=== PATIENT | female | born 1980 | race African-American/Black ===

== ENCOUNTER 2016-12-13 09:29 | Observation (INO) | payer SELFPAY ==
[~2016-12-13] VITALS: Ht 157.5 cm; Wt 80.0 kg
[~2016-12-13 09:29] MED LIST: AMLO10 PO; LISI-360 PO
[2016-12-13 09:33] VITALS: BP 148/97; PULSE 80; RESP 17; TEMP 98.5; O2SAT 100
[2016-12-13] MEDS ORDERED: CLON0.2T PO ×2 (09:41→14:08)
[2016-12-13] MEDS ORDERED: AMLO10 PO ×2 (09:41→14:08)
--- NOTE | 2016-12-13 10:06 | PD ---
HPI Chief Complaint: Syncope/Near-Syncope Time Seen by Provider: 09:43 Travel History International Travel<30 days: No Contact w/Intl Traveler<30days: No Traveled to known affect area: No History of Present Illness HPI Patient is a 36 year old female who comes in after nearly passed out today at work. She says she has been out of her blood pressure medications for the past 4 days. She says she started feeling very dizzy yesterday and had a severe headache. She says she took one of her friends Clonidines this morning because this is normally how she feels when her blood pressure is high. She says when she got to work, she felt very dizzy and had to sit down. She says she felt as if she were about to pass out, but never did. She says that her headache has improved. She does report some blurred vision. Since arriving at the hospital , she has developed some left sided chest pain and she feels like it is hard to catch her breath. PFSH Past Medical History Heart Rhythm Problems: No Cancer: No Cardiovascular Problems: Yes (HTN) High Cholesterol: No Chest Pain: Yes Congestive Heart Failure: No Cerebrovascular Accident: Yes (TIA) Diminished Hearing: No Endocrine: No Genitourinary: No Hypertension: Yes Immune Disorder: No Implanted Vascular Access Dvce: No Musculoskeletal: No Neurologic: No Psychiatric: No Reproductive: No Respiratory: No Tetanus Vaccination: Unknown Influenza Vaccination: Yes ?: Not LMP: 11/20/16 Past Surgical History Surgical History: No Previous Surgery Social History Alcohol Use: Yes (WEEKENDS ONLY) Tobacco Use: Yes (10/20 PPD) Substance Use: No Allergies-Medications (Allergen,Severity, Reaction): Coded Allergies: No Known Allergies (Verified , 12/13/16) Reported Meds & Prescriptions Reported Meds & Active Scripts Active Reported Clonidine (Clonidine HCl) 0.2 Mg Tab 0.2 Mg PO BID Norvasc (Amlodipine Besylate) 10 Mg Tab 10 Mg PO DAILY Review of Systems Except as stated in HPI: all other systems reviewed are Neg General / Constitutional: No: Fever, Chills Eyes: Positive: Blurred Vision HENT: Positive: Headaches Cardiovascular: Positive: Chest Pain or Discomfort Respiratory: Positive: Shortness of Breath, No: Cough Gastrointestinal: No: Nausea, Vomiting, Abdominal Pain Musculoskeletal: No: Myalgias, Edema Skin: No Rash, No Change in Pigmentation Neurologic: Positive: Dizziness Physical Exam Narrative GENERAL: Awake and alert, in no acute distress. SKIN: Warm and dry. HEAD: Atraumatic. Normocephalic. EYES: Pupils equal and round. No scleral icterus. Extraocular movements intact. ENT: Mucous membranes pink and moist. NECK: Trachea midline. No JVD. CARDIOVASCULAR: Regular rate and rhythm. No murmur appreciated. RESPIRATORY: No accessory muscle use. Clear to auscultation. Breath sounds equal bilaterally. GASTROINTESTINAL: Abdomen soft, non-tender, nondistended. MUSCULOSKELETAL: No obvious deformities. No clubbing. No cyanosis. No edema. NEUROLOGICAL: Awake and alert. No obvious cranial nerve deficits. Motor grossly within normal limits. Normal speech. Normal cerebellar function testing. PSYCHIATRIC: Appropriate mood and affect; insight and judgment normal. Data Data Last Documented VS Vital Signs Date Time Temp Pulse Resp B/P Pulse Ox O2 Delivery O2 Flow Rate FiO2 12/13/16 12:04 71 16 143/98 99 Room Air 12/13/16 09:33 98.5 Orders Electrocardiogram (12/13/16 ) B-Type Natriuretic Peptide (12/13/16 09:57) Complete Blood Count With Diff (12/13/16 09:57) Comprehensive Metabolic Panel (12/13/16 09:57) Prothrombin Time / Inr (Pt) (12/13/16 09:57) Act Partial Throm Time (Ptt) (12/13/16 09:57) Troponin I (12/13/16 09:57) Ecg Monitoring (12/13/16 09:57) Bilateral Bp Monitoring (12/13/16 09:57) Iv Access Insert/Monitor (12/13/16 09:57) Oximetry (12/13/16 09:57) Chest, Pa & Lat (12/13/16 09:57) Ct Brain W/O Iv Contrast(Rout) (12/13/16 ) Ed Urine Pregnancytest Poc (12/13/16 09:57) Urinalysis - C+S If Indicated (12/13/16 09:57) Amlodipine (Norvasc) (12/13/16 10:00) Urine Culture (12/13/16 10:16) Nitrofurantoin Monohyd Macrocr (Macrobid (12/13/16 11:30) Labs Laboratory Tests Test 12/13/16 12/13/16 10:01 10:16 White Blood Count 6.9 TH/MM3 Red Blood Count 3.50 MIL/MM3 Hemoglobin 11.3 GM/DL Hematocrit 33.6 % Mean Corpuscular Volume 95.9 FL Mean Corpuscular Hemoglobin 32.3 PG Mean Corpuscular Hemoglobin 33.7 % Concent Red Cell Distribution Width 15.0 % Platelet Count 211 TH/MM3 Mean Platelet Volume 7.9 FL Neutrophils (%) (Auto) 62.6 % Lymphocytes (%) (Auto) 21.1 % Monocytes (%) (Auto) 11.6 % Eosinophils (%) (Auto) 4.1 % Basophils (%) (Auto) 0.6 % Neutrophils # (Auto) 4.3 TH/MM3 Lymphocytes # (Auto) 1.5 TH/MM3 Monocytes # (Auto) 0.8 TH/MM3 Eosinophils # (Auto) 0.3 TH/MM3 Basophils # (Auto) 0.0 TH/MM3 CBC Comment DIFF FINAL Differential Comment Prothrombin Time 11.3 SEC Prothromb Time International 1.0 RATIO Ratio Activated Partial 26.7 SEC Thromboplast Time Sodium Level 140 MEQ/L Potassium Level 4.3 MEQ/L Chloride Level 110 MEQ/L Carbon Dioxide Level 26.9 MEQ/L Anion Gap 3 MEQ/L Blood Urea Nitrogen 12 MG/DL Creatinine 1.28 MG/DL Estimat Glomerular Filtration 56 ML/MIN Rate Random Glucose 75 MG/DL Calcium Level 7.8 MG/DL Total Bilirubin 0.8 MG/DL Aspartate Amino Transf 28 U/L (AST/SGOT) Alanine Aminotransferase 16 U/L (ALT/SGPT) Alkaline Phosphatase 64 U/L Troponin I LESS THAN 0.02 NG/ML B-Type Natriuretic Peptide 9 PG/ML Total Protein 7.1 GM/DL Albumin 3.3 GM/DL Urine Color YELLOW Urine Turbidity HAZY Urine pH 5.5 Urine Specific [place] 1.023 Urine Protein 30 mg/dL Urine Glucose (UA) NEG mg/dL Urine Ketones NEG mg/dL Urine Occult Blood NEG Urine Nitrite NEG Urine Bilirubin NEG Urine Urobilinogen 2.0 MG/DL Urine Leukocyte Esterase LARGE Urine RBC 5 /hpf Urine WBC 25 /hpf Urine Squamous Epithelial 27 /hpf Cells Urine Transitional Epithelial <1 /hpf Cells Urine Bacteria FEW /hpf Urine Hyaline Casts 5 /lpf Urine Mucus FEW /lpf Microscopic Urinalysis Comment CULTURE INDICATED MDM Medical Decision Making Medical Screen Exam Complete: Yes Emergency Medical Condition: Yes Medical Record Reviewed: Yes Interpretation(s) ECG shows normal sinus rhythm at 75, no ST elevation or depression, normal intervals. Differential Diagnosis Syncope versus ACS versus electrolyte abnormality versus NSTEMI versus STEMI versus hypertensive emergency Narrative Course Patient is a 36-year-old female with history of high blood pressure, who comes in complaining of chest pain and near syncopal episode. Does no acute abnormalities, no neurologic abnormalities. IV established, patient connected to the catheterization laboratory technician. ECG performed shows no signs of ischemia. Labs sent including pressure-point show no acute abnormality. Urinalysis is positive for UTI. Patient given a dose of Macrobid. Will be given prescription for Macrobid to start when she is discharged. CT head performed shows no acute abnormalities. Patient given aspirin and her dose of amlodipine. Due to patient's history and presenting symptoms, I believe patient would benefit a chest pain center. Will be placed in observation for further management. Diagnosis Primary Impression: Chest pain Qualified Code: R07.9 - Chest pain, unspecified type Additional Impression: Near syncope Admitting Information Admitting Physician Requests: Observation Scripts Nitrofurantoin Monohydrate Macrocrystals (Macrobid)100 Mg [id number] Mg PO BID 5 Days Ref 0 Prov:Cheryle Mazariegos MD 12/13/16 Condition: Stable Cheryle Mazariegos MD Dec 13, 2016 10:06
[2016-12-13 10:17] VITALS: O2SAT 100
[2016-12-13 10:19] LABS: AUTOMATED NEUTROPHIL # 4.3 TH/MM3 (1.8-7.7); BASOPHIL % 0.6 % (0.0-2.0); EOSINOPHIL # 0.3 TH/MM3 (0-0.4); EOSINOPHIL % 4.1 % (0.0-4.0); HEMATOCRIT 33.6 % (35.0-46.0); HEMO FLAGS DIFF FINAL; LYMPH % 21.1 % (9.0-44.0); LYMPHOCYTE # 1.5 TH/MM3 (1.0-4.8); MEAN CELL VOLUME 95.9 FL (80.0-100.0); MEAN CORPUSCULAR HEMOGLOBIN 32.3 PG (27.0-34.0); MEAN CORPUSCULAR HGB CONC 33.7 % (32.0-36.0); MONO % 11.6 % (0.0-8.0); NEUT % 62.6 % (16.0-70.0); PLATELET COUNT 211 TH/MM3 (150-450); WHITE BLOOD COUNT 6.9 TH/MM3 (4.0-11.0)
[2016-12-13 10:30] LABS: APTT (PATIENT) 26.7 SEC (24.3-30.1); PROTHROMBIN TIME - PATIENT 11.3 SEC (9.8-11.6)
[2016-12-13 10:44] LABS: BACTERIA, URINE FEW /hpf; BLOOD, URINE NEG (NEG); COMMENT (UR) CULTURE INDICATED; CULTURE IF INDICATED CULTURE INDICATED; GLUCOSE,URINE NEG (NEG); HYALINE CAST, URINE 5 /lpf (RARE); KETONE, URINE NEG (NEG); MUCUS URINE FEW /lpf (OCC); NITRITE,URINE NEG (NEG); PH, URINE 5.5 (5.0-8.5); SQUAMOUS EPITHELIAL CELL URINE 27 /hpf (0-5); TRANSITIONAL EPI CELLS, URINE <1 /hpf; URINE COLOR YELLOW (YELLW/STRAW)
[2016-12-13 10:48] LABS: ALKALINE PHOSPHATASE 64 U/L (45-117); TOTAL BILIRUBIN ADULT 0.8 MG/DL (0.2-1.0)
[2016-12-13 10:53] VITALS: BP 157/100; PULSE 77; RESP 17; O2SAT 100
[2016-12-13 10:54] LABS: ALT (GPT) 16 U/L (10-53); ANION GAP 3 MEQ/L (5-15); AST (GOT) 28 U/L (15-37); BICARBONATE 26.9 MEQ/L (21.0-32.0); BLOOD UREA NITROGEN 12 MG/DL (7-18); CHLORIDE 110 MEQ/L (98-107); GLOMERULAR FILTRATION RATE 56 ML/MIN (>89); POTASSIUM 4.3 MEQ/L (3.5-5.1); SODIUM (NA) 140 MEQ/L (136-145)
[2016-12-13] MEDS ORDERED: NITROFURANTOIN MONOHYD MACROCR 100 MG CAP PO ONE (11:30)
--- NOTE | 2016-12-13 11:34 | RADRPT ---
EXAM DATE/TIME: 12/13/2016 10:53 [facility] COMPARISON: CHEST SINGLE AP, April 22, 2016, 12:39. INDICATIONS : Syncopal episode today. Patient gets really dizzy when she stands. MEDICAL HISTORY : Cardiovascular disease. Hypertension SURGICAL HISTORY : None. ENCOUNTER: Initial ACUITY: 1 day PAIN SCORE: 0/10 LOCATION: Bilateral chest FINDINGS: AP and lateral views of the chest. The lungs are clear. The mediastinal width is mildly prominent at the level of the ascending thoracic aorta. Cardiac silhouette within normal limits. No evidence of pl eural effusion or pneumothorax. CONCLUSION: 1. Mildly prominent mediastinal width at the level of the ascending aorta. Given the history of chest pain, CT chest with contrast could be performed to evaluate for thoracic aortic aneurysm. 2. No other acute cardiopulmonary disease identified. Calixto Taylor MD on December 13, 2016 at 11:28 Board Certified Radiologist. This report was verified electronically.
[2016-12-13 11:45] VITALS: BP 163/106; PULSE 70; RESP 16; O2SAT 99
[2016-12-13 12:04] VITALS: BP 143/98; PULSE 71; RESP 16; O2SAT 99
[2016-12-13] MEDS ORDERED: MACR100C2 PO (12:18)
--- NOTE | 2016-12-13 13:03 | RADRPT ---
EXAM DATE/TIME: 12/13/2016 11:53 [facility] COMPARISON: CT BRAIN W/O CONTRAST, April 22, 2016, 13:17. INDICATIONS : Near-syncope, dizziness, headache. RADIATION DOSE: 41.61 CTDIvol (mGy) MEDICAL HISTORY : Hypertension. TIA. SURGICAL HISTORY : None. ENCOUNTER: Initial ACUITY: 1 day PAIN SCALE: 6/10 LOCATION: Bilateral cranial TECHNIQUE: Multiple contiguous axial images were obtained of the head. Using automated exposure control and adj ustment of the mA and/or kV according to patient size, radiation dose was kept as low as reasonably a chievable to obtain optimal diagnostic quality images. FINDINGS: CEREBRUM: The ventricles are normal for age. No evidence of midline shift, mass lesion, hemorrhage or acute in farction. No extra-axial fluid collections are seen. POSTERIOR FOSSA: The cerebellum and brainstem are intact. The 4th ventricle is midline. The cerebellopontine angle i s unremarkable. EXTRACRANIAL: The visualized portion of the orbits is intact. SKULL: The calvaria is intact. No evidence of skull fracture. CONCLUSION: No acute intracranial findings. Calixto Taylor MD on December 13, 2016 at 13:00 Board Certified Radiologist. This report was verified electronically.
[2016-12-13 13:37] VITALS: BP 155/100; PULSE 75; RESP 16; O2SAT 100
--- NOTE | 2016-12-13 14:04 | HHI.DCPOC ---
Discharge Care Plan Diagnosis: (1) Atypical chest pain (2) Hypertension Goals to Promote Your Health * To prevent worsening of your condition and complications * To maintain your health at the optimal level Directions to Meet Your Goals Take your medications as prescribed Follow your dietary instruction Follow activity as directed Keep your appointments as scheduled Take your immunizations and boosters as scheduled If your symptoms worsen call your PCP, if no PCP go to Urgent Care Center or Emergency Room Smoking is Dangerous to Your Health. Avoid second hand smoke Call the 24-hour hour crisis hotline for domestic abuse at Lisbet Edmond Dec 13, 2016 14:03
--- NOTE | 2016-12-13 15:45 | HHI.HP ---
HPI Primary Care Physician No Primary Care Physician Chief Complaint Dizziness and hypertension History of Present Illness 36-year-old female with known hypertension presents to the emergency room via EMS for hypertension. While at work she "felt hot and seen spots" and stepped outside to "get some air." She became dizzy. She was concerned her symptoms were due to elevated blood pressure and called EMS. She endorses forgetting her blood pressure medication regularly. Also ran out of her clonidine tablets 4 days ago. Took her amlodipine yesterday, prior to that forgot 3 days in a row. Yesterday she checked her blood pressure about [employer] and BP was 224/ 100. Took a friend's clonidine at that time. After arriving to emergency room she developed left anterior chest sharp pain. Duration seconds. No radiation. No associated symptoms. No known precipitating or relieving factors. Review of Systems General: No fatigue,weakness, fever, chills, recent travel, recent illness, or change in appetite HEENT: Before arriving to the ER reports dizziness and "seeing spots." Symptoms have improved since receiving BP medication. No FLOR[place], no vision changes, no nasal congestion or drainage CV: As stated above. No current CP or pressure. No palpitations or intermittent leg pain RESP: No SOB, cough, wheeze,or asthma GI: No nausea, vomiting, diarrhea, pain. No change in appetite, no unintentional weight gain or weight loss : No dysuria, urgency, frequency EXT: No lower leg edema, no paraesthesias MS: No discomfort or change in ROM NEURO: No change in memory, dizziness, difficulty with balance, LOC, motor/ sensory deficits PSYCH: No anxiety and depression SKIN: No rashes, no concerning lesions Past Family Social History Allergies: Coded Allergies: No Known Allergies (Verified , 12/13/16) Past Medical History Hypertension Reported Medications Reported Meds & Active Scripts Active Clonidine (Clonidine HCl) 0.2 Mg Tab 0.2 Mg PO BID-ran out prescription for days ago Norvasc (Amlodipine Besylate) 10 Mg Tab 10 Mg PO DAILY-endorses getting often Family History Noncontributory for cardiovascular disease. Mother had CAD and take nitroglycerin tablets for chest pain, specific cardiac history unknown. Social History Works at a local [employer]. Works approximately 96 hours every 2 weeks. No known diabetes, lipid panel is unknown. Diagnosed with hypertension 5 years ago. Does not have a primary care provider. Was seeing Dr. Dunlap at [facility], however was "let go" as she does not have a permanent mailing address. Uninsured and unable to afford a primary care provider. Past cardiac testing No recent stress testing, has never had formal cardiac workup. Physical Exam Vital Signs Vital Signs Date Time Temp Pulse Resp B/P Pulse Ox O2 Delivery O2 Flow Rate FiO2 12/13/16 13:37 75 16 155/100 100 Room Air 12/13/16 12:04 71 16 143/98 99 Room Air 12/13/16 11:45 70 16 163/106 99 Room Air 12/13/16 10:53 77 17 157/100 100 Room Air 12/13/16 10:17 100 Room Air 12/13/16 09:38 83 17 100 Room Air 12/13/16 09:33 98.5 80 17 148/97 100 Physical Exam GENERAL: Alert WN, WD, NAD, pleasant, female HEAD: NC, AT EYES: Sclera clear, conjunctiva without injection, pupils equal and round ENT: Mucous membranes pink and moist NECK: Supple, no masses, trachea midline CV: RRR, without murmur, rub, gallop, no JVD, S1-S2 no S3-S4. No carotid or femoral bruits RESP: Clear lungs throughout bilateral, no crackles, wheeze, rhonchi, symmetrical chest rise, nonlabored, able to speak in full sentences ABD: Soft, NT, ND, no masses, positive bowel tones EXT: Pulses +24, no dependent edema MS: Normal tone 4 extremities, nontender, no obvious deformities, full range of motion NEURO: CN II through CN XII grossly intact, motor strength 5/5, gait WNL PSYCH: A+O 3, pleasant affect, appropriate speech, appropriate mood and affect , insight and judgment SKIN: Normal turgor, normal texture, no lesions, no rashes Laboratory Laboratory Tests Test 12/13/16 12/13/16 12/13/16 10:01 10:16 13:00 White Blood Count 6.9 Red Blood Count 3.50 Hemoglobin 11.3 Hematocrit 33.6 Mean Corpuscular Volume 95.9 Mean Corpuscular Hemoglobin 32.3 Mean Corpuscular Hemoglobin 33.7 Concent Red Cell Distribution Width 15.0 Platelet Count 211 Mean Platelet Volume 7.9 Neutrophils (%) (Auto) 62.6 Lymphocytes (%) (Auto) 21.1 Monocytes (%) (Auto) 11.6 Eosinophils (%) (Auto) 4.1 Basophils (%) (Auto) 0.6 Neutrophils # (Auto) 4.3 Lymphocytes # (Auto) 1.5 Monocytes # (Auto) 0.8 Eosinophils # (Auto) 0.3 Basophils # (Auto) 0.0 CBC Comment DIFF FINAL Differential Comment Prothrombin Time 11.3 Prothromb Time International 1.0 Ratio Activated Partial 26.7 Thromboplast Time Sodium Level 140 Potassium Level 4.3 Chloride Level 110 Carbon Dioxide Level 26.9 Anion Gap 3 Blood Urea Nitrogen 12 Creatinine 1.28 Estimat Glomerular Filtration 56 Rate Random Glucose 75 Calcium Level 7.8 Total Bilirubin 0.8 Aspartate Amino Transf 28 (AST/SGOT) Alanine Aminotransferase 16 (ALT/SGPT) Alkaline Phosphatase 64 Troponin I LESS THAN 0.02 LESS THAN 0.02 B-Type Natriuretic Peptide 9 Total Protein 7.1 Albumin 3.3 Urine Color YELLOW Urine Turbidity HAZY Urine pH 5.5 Urine Specific [place] 1.023 Urine Protein 30 Urine Glucose (UA) NEG Urine Ketones NEG Urine Occult Blood NEG Urine Nitrite NEG Urine Bilirubin NEG Urine Urobilinogen 2.0 Urine Leukocyte Esterase LARGE Urine RBC 5 Urine WBC 25 Urine Squamous Epithelial 27 Cells Urine Transitional Epithelial <1 Cells Urine Bacteria FEW Urine Hyaline Casts 5 Urine Mucus FEW Microscopic Urinalysis Comment CULTURE INDICATED Date/Time Procedure Status Source Growth 12/13/16 10:16 Urine Culture Received Urine Clean Catch Pending Result Diagram: 12/13/16 1001 12/13/16 1001 Imaging Last Impressions Chest X-Ray 12/13/16 0957 Signed Impressions: Service Date/Time: Tuesday, December 13, 2016 10:53 - CONCLUSION: 1. Mildly prominent mediastinal width at the level of the ascending aorta. Given the history of chest pain, CT chest with contrast could be performed to evaluate for thoracic aortic aneurysm. 2. No other acute cardiopulmonary disease identified. Calixto Taylor MD Head CT 12/13/16 0000 Signed Impressions: Service Date/Time: Tuesday, December 13, 2016 11:53 - CONCLUSION: No acute intracranial findings. Calixto Taylor MD Course EKG 2 EKGs show normal sinus rhythm with nonspecific T-wave changes. Assessment and Plan Assessment and Plan #1 Chest painadmitted to chest pain center. Was ruled out with 2 sets of EKGs and cardiac enzymes. Was seen and evaluated by Dr. Jose Raul Sales. Chest pain is atypical. Discussed in length her chest discomfort most likely musculoskeletal therefore no further cardiac testing required. #2 Hypertensionrenewed her prescription of amlodipine and clonidine. Discussed the importance of tight blood pressure control and compliance of medication. Follow a low-sodium diet. Encouraged her to find local primary [email or web address] clinic address and phone number provided as she may qualify for a reduced primary care visit rate. #3 UTIMacrobid prescription provided by [facility] Garcia #4 Tobacco usestrongly encouraged and stressed importance of tobacco sensation. Discussed in consultation to quit smoking. Lisbet Edmond Dec 13, 2016 15:45
--- NOTE | 2016-12-14 15:39 | EKG ---
Date Performed: 12/13/2016 Time Performed: 13:09:20 PTAGE: 36 years EKG: Sinus rhythm NONSPECIFIC ST & T-WAVE ABNORMALITY BORDERLINE ECG PREVIOUS TRACING : 12/13/2016 09.44 Since previous tracing, no significant change noted DOCTOR: Jose Raul Sales Interpretating Date/Time 12/14/2016 15:39:00
--- NOTE | 2016-12-14 15:40 | EKG ---
Date Performed: 12/13/2016 Time Performed: 09:44:49 PTAGE: 36 years EKG: Sinus rhythm NONSPECIFIC T-WAVE ABNORMALITY BORDERLINE ECG PREVIOUS TRACING : 04/22/2016 13.08 Since previous tracing, no significant change noted DOCTOR: Jose Raul Sales Interpretating Date/Time 12/14/2016 15:39:29
== END 2016-12-13 15:26 | disposition home or self-care (01) ==
LOC: NEPA 09:29 → NEDA 13:14
DX: N39.0 Urinary tract infection, site not specified (principal); R51 Headache; R42 Dizziness and giddiness; H53.8 Other visual disturbances; I10 Essential (primary) hypertension; Z86.73 Personal history of transient ischemic attack (TIA), and cerebral infarction without residual deficits; F17.210 Nicotine dependence, cigarettes, uncomplicated; Z79.899 Other long term (current) drug therapy; I71.2 Thoracic aortic aneurysm, without rupture; R94.31 Abnormal electrocardiogram [ECG] [EKG]; R82.90 Unspecified abnormal findings in urine
CPT/HCPCS: 70450; 71020; 80053; 81001; 83880; 84484; 84703; 85025; 85610; 85730; 87086; 93005; 99285; G0378

== ENCOUNTER 2016-12-16 10:24 | Emergency (ER) | payer SELFPAY ==
[~2016-12-16] VITALS: Ht 157.5 cm; Wt 80.0 kg
[~2016-12-16 10:24] MED LIST changes: +CLON0.2T PO; -LISI-360 PO; +MACR100C2 PO
[2016-12-16 10:26] VITALS: BP 161/102; PULSE 77; RESP 15; TEMP 97.8; O2SAT 98
--- NOTE | 2016-12-16 10:42 | PD ---
HPI Chief Complaint: Medical Clearance Time Seen by Provider: 10:42 Travel History International Travel<30 days: No Contact w/Intl Traveler<30days: No Traveled to known affect area: No History of Present Illness HPI 36-year-old female came to the emergency room since she was called and asked to return because of an abnormal chest x-ray report from 3 days ago. Patient was here brought in by EMS 3 days ago for dizziness. Seen and evaluated for it and discharged. However she was called back 2 days ago asking to return since a chest x-ray was read as widened mediastinum requiring a CT scan to further evaluate. Patient says she was out of town and hence was unable to come in earlier. Currently she is not having any complaints. She feels better and no history of chest pain. She was somewhat hypertensive in triage but otherwise normal vital signs. Patient has history of hypertension. [facility] Past Medical History Narrative Medical List of her past medical, surgical, social and family history has been reviewed from the nursing note Heart Rhythm Problems: No Cancer: No Cardiovascular Problems: Yes (HTN) High Cholesterol: No Chest Pain: Yes Congestive Heart Failure: No Cerebrovascular Accident: Yes (TIA) Diminished Hearing: No Endocrine: No Genitourinary: No Hypertension: Yes Immune Disorder: No Implanted Vascular Access Dvce: No Musculoskeletal: No Neurologic: No Psychiatric: No Reproductive: No Respiratory: No Tetanus Vaccination: Unknown Influenza Vaccination: Yes ?: Not LMP: 12/16/16 Past Surgical History Other Surgery: No Social History Alcohol Use: Yes (WEEKENDS ONLY) Tobacco Use: Yes (1/2 PPD) Substance Use: No Allergies-Medications (Allergen,Severity, Reaction): Coded Allergies: Lisinopril (Verified Allergy, Severe, kidney failure, 12/16/16) Comments List of her allergies reviewed from the nursing note. Reported Meds & Prescriptions Reported Meds & Active Scripts Active Clonidine (Clonidine HCl) 0.2 Mg Tab 0.2 Mg PO BID Norvasc (Amlodipine Besylate) 10 Mg Tab 10 Mg PO DAILY Macrobid (Nitrofurantoin Monoh/Nitrofur Macro) 100 Mg Cap 100 Mg PO BID 5 Days Narrative Medication List of her home medications reviewed from the nursing note. Review of Systems Except as stated in HPI: all other systems reviewed are Neg Physical Exam Narrative GENERAL: Awake, alert, no obvious distress SKIN: Warm and dry. HEAD: Atraumatic. Normocephalic. EYES: Pupils equal and round. No scleral icterus. No injection or drainage. ENT: No nasal bleeding or discharge. Mucous membranes pink and moist. NECK: Trachea midline. No JVD. CARDIOVASCULAR: Regular rate and rhythm. No murmur appreciated. RESPIRATORY: No accessory muscle use. Clear to auscultation. Breath sounds equal bilaterally. GASTROINTESTINAL: Abdomen soft, non-tender, nondistended. Hepatic and splenic margins not palpable. MUSCULOSKELETAL: No obvious deformities. No clubbing. No cyanosis. No edema. NEUROLOGICAL: Awake and alert. No obvious cranial nerve deficits. Motor grossly within normal limits. Normal speech. PSYCHIATRIC: Appropriate mood and affect; insight and judgment normal. Data Data Last Documented VS Orders Chest, Pa & Lat (12/16/16 ) [facility] Medical Decision Making Medical Screen Exam Complete: Yes Emergency Medical Condition: Yes Medical Record Reviewed: Yes Differential Diagnosis Aortic dissection, inadequate test Narrative Course 11:30 AM given the fact that a portable chest x-ray was done 3 days ago where the mediastinum was commented as widened and that kind of chest x-ray is not the best modality to comment on the mediastinum I ordered a proper PA and lateral chest x-ray. This was reported as normal. Also given the fact the patient has no complaint of chest pain is highly unlikely the patient has dissection. Based on this I'm comfortable discharging her at this point. I've explained this to the patient and she is comfortable with the plan as well. Procedures EKG Prior to Arrival: No Diagnosis Primary Impression: Chest x-ray abnormality Additional Impression: Normal physical exam Referrals: Primary Care Physician 2 days Additional Instructions: Please return to the ER if the condition worsens or any other new concerns. Follow-up with your primary care. Med/Other Pt SpecificInfo: No Change to Meds Disposition: DISCHARGE HOME Condition: Stable Yi Spann MD Dec 16, 2016 10:42 Please return to the ER if the condition worsens or any other new concerns. Follow-up with your primary care. Med/Other Pt SpecificInfo: No Change to Meds Disposition: DISCHARGE HOME Condition: Stable Yi Spann MD Dec 16, 2016 10:42
--- NOTE | 2016-12-16 11:28 | RADRPT ---
EXAM DATE/TIME: 12/16/2016 11:28 This report includes an Addendum and supersedes previous reports for this exam. [place] COMPARISON: No previous studies available for comparison. INDICATIONS : Syncope, dizziness, high blood pressure. MEDICAL HISTORY : Hypertension. SURGICAL HISTORY : None. ENCOUNTER: Subsequent ACUITY: 3 days PAIN SCORE: 0/10 LOCATION: Bilateral chest FINDINGS: PA and lateral views of the chest demonstrate the lungs to be symmetrically aerated without evidence of mass, infiltrate or effusion. The cardiomediastinal contours are unremarkable. Osseous structure s are intact. CONCLUSION: Normal examination. Vinicius Roblero MD on December 16, 2016 at 11:26 Board Certified Radiologist. This report was verified electronically. ADDENDUM: I did compare this study with 12/13/16 and April 2016 chest x-ray. The ascending aorta remains promine nt but unchanged since 2016. Vinicius Roblero MD on December 16, 2016 at 12:00 Board Certified Radiologist. This report was verified electronically.
[2016-12-16 11:55] VITALS: BP 149/102
== END 2016-12-16 12:12 | disposition home or self-care (01) ==
LOC: NEPA 10:24
DX: R91.8 Other nonspecific abnormal finding of lung field (principal); R42 Dizziness and giddiness; I10 Essential (primary) hypertension; F17.210 Nicotine dependence, cigarettes, uncomplicated
CPT/HCPCS: 71020; 99281